=== PATIENT | female | born 2000 | race Caucasian/White ===

== ENCOUNTER 2019-07-11 14:31 | Emergency (ER) | payer OTHER ==
[~2019-07-11] VITALS: Ht 175.3 cm; Wt 70.3 kg
[2019-07-11] MEDS ORDERED: IBUPROFEN 800800 M1 PO (16:40)
[2019-07-11] MEDS ORDERED: NORCO 5-325 TA1 EAC1 PO (17:26)
[2019-07-11] MEDS ORDERED: SENNA-DOCUSATE1 EAC1 PO (17:26)
[2019-07-11 18:11] VITALS: BP 123/72
== END 2019-07-11 18:11 | disposition home or self-care (01) ==
LOC: EDBD 14:31 → ER 14:31
DX: J02.9 Acute pharyngitis, unspecified (principal); Z88.0 Allergy status to penicillin